=== PATIENT | female | born 1970 | race African-American/Black ===

== ENCOUNTER 2019-06-10 02:24 | Emergency (ER) | payer OTHER ==
[~2019-06-10] VITALS: Ht 182.9 cm; Wt 88.5 kg
[2019-06-10 06:56] VITALS: BP 121/76
== END 2019-06-10 06:56 | disposition home or self-care (01) ==
LOC: ED 02:24
DX: L03.011 Cellulitis of right finger (principal); Z86.2 Personal history of diseases of the blood and blood-forming organs and certain disorders involving the immune mechanism
CPT/HCPCS: J1885